=== PATIENT | female | born 1995 | race Hispanic/Latino ===

== ENCOUNTER 2018-12-05 00:37 | Emergency (ER) | payer SELFPAY ==
[2018-12-05] MEDS ORDERED: EPINEPHrine 1 MG/10 ML Abboject SYRINGE ONE (00:46)
[2018-12-05] MEDS ORDERED: EPINEPHrine 1 MG/ML AMP ONE (00:47)
[2018-12-05] MEDS ORDERED: methylPREDNISolone Sod Succ/PF 125 MG/2 ML VIAL ONE (01:14)
[2018-12-05] MEDS ORDERED: Famotidine 20 MG TAB PO SCH (01:30)
== END 2018-12-05 03:53 | disposition home or self-care (01) ==
LOC: ERS 00:37
DX: T78.2XXA Anaphylactic shock, unspecified, initial encounter (principal); Z79.899 Other long term (current) drug therapy
CPT/HCPCS: 96361; 96372; 96374; J0171; J2930